=== PATIENT | female | born 1990 | race Caucasian/White ===

== ENCOUNTER 2017-12-02 11:19 | Emergency (ER) | payer OTHER ==
[~2017-12-02] VITALS: Ht 167.6 cm; Wt 74.8 kg
[2017-12-02 11:20] VITALS: BP 113/69
[2017-12-02 11:55] LABS: ABSOLUTE BASOPHIL COUNT 0.1 /CUMM (0.0-0.2); ABSOLUTE EOSINOPHIL COUNT 0 /CUMM (0.0-0.7); ABSOLUTE GRANULOCYTE CT 3.6 /CUMM (1.4-6.5); ABSOLUTE LYMPH COUNT 1.4 /CUMM (1.2-3.4); ABSOLUTE MONOCYTE COUNT 0.2 /CUMM (0.10-0.60); BASOPHIL % 2.6 % (0.0-2.0); EOSINOPHIL % 0.9 % (0-5); GRANULOCYTE % 67.5 % (42.2-75.2); HEMATOCRIT 35.4 % (37-47); MEAN CORPUSCULAR HGB 28.6 PG (27.0-31.0); MEAN CORPUSCULAR HGB CONC 34.3 G/DL (33.0-37.0); MEAN CORPUSCULAR VOLUME 83.3 FL (81.0-99.0); MEAN PLATELET VOLUME 7.7 FL (7.4-10.4); PLATELET COUNT 286 /CUMM (130-400); RED BLOOD CELL CT 4.25 /CUMM (4.20-5.40); WHITE BLOOD CELL COUNT 5.3 /CUMM (4.8-10.8)
[2017-12-02 12:05] LABS: PT 10.4 SEC (9.4-12.5); PTT 31 SEC (25-37)
[2017-12-02] MEDS ORDERED: FERROUS SULFAT325 M3 PO (12:14)
[2017-12-02] MEDS ORDERED: COLACE100 M1 PO (12:14)
[2017-12-02] MEDS ORDERED: METHADONE H5 MG/5 M2 PO (12:15)
[2017-12-02] MEDS ORDERED: NAC600 M1 PO (12:16)
[2017-12-02] MEDS ORDERED: DAILY VALUE1 EACH PO (12:17)
--- NOTE | 2017-12-02 12:47 | ED GI/GU/ABDOMINAL COMPLAINT ---
History of Present Illness General Chief Complaint: Abdominal Pain/Flank Pain Stated Complaint: BIBA ABD PAIN Source: patient Exam Limitations: no limitations Vital Signs & Intake/Output Vital Signs & Intake/Output ED Intake and Output 12/03 0000 12/02 1200 Intake Total Output Total Balance Patient 165 lb Weight Weight Reported by Patient Measurement Method Allergies Coded Allergies: No Known Allergies (12/02/17) Reconcile Medications Acetylcysteine (NAC) 600 MG CAPSULE 2 CAP PO BID UNKNOWN (Reported) Docusate Sodium (Colace) 100 MG CAPSULE 1 CAP PO DAILY STOOL SOFTENER ( Reported) Ferrous Sulfate 325 MG (65 MG IRON) TABLET 1 TAB PO DAILY IRON, VITAMIN ( Reported) Methadone HCl 5 MG/5 ML SOLUTION 90 MG PO DAILY MAINTENCE (Reported) Multivitamin (Daily Value) 1 EACH TABLET 1 TAB PO DAILY VITAMIN SUPPORT ( Reported) Triage Note: PRESENTS WITH EMS AFTER ONSET THIS MORNING OF DARK RED LOOSE STOOL X 4 EVENTS STARTING AT 0830. ALSO ASSOCIATED WITH 4 EPISODES OF EMESIS. ON ARRIVAL TO ED NO COMPLAINT OF N/V/D. NO SIMILAR EVENTS BEFORE. 4 MONTHS , CURRENTLY EXPEREINCING MENSES. Triage Nurses Notes Reviewed? yes LMP (ages 10-50): unknown ? N Is pt currently ? No Onset: Abrupt Duration: hour(s): (2), better, gone now Timing: single episode today Quality/Severity: cramping Severity Numbers: 5 Location: generalized abdomen Radiation: no radiation Activities at Onset: none Prior Abdominal Problems: none Past Sexual History: Unobtainable at this time No Modifying Factors: none Modifying Factors: Worsens With: palpation. HPI: 27-year-old female history of opioid dependence on methadone maintenance presents for evaluation of abdominal pain nausea vomiting and diarrhea. Patient states symptoms started suddenly 1-2 hours prior to arrival. The pain is located diffusely in her abdomen described as cramping. She notes that she had multiple episodes of watery diarrhea and did notice some bright red blood on the toilet paper. Denies any melena. No urinary symptoms vaginal discharge or vaginal bleeding. No dizziness or lightheadedness. ShE also notes that she has 4 episodes of vomiting. No hematemesis. No chest pain or shortness of breath. She reports that her symptoms have improved significantly since first starting. (Greyson Vegas) Past History Travel History Traveled to [place] past 21 day No Medical History Any Pertinent Medical History? 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 No (Greyson Vegas) Review of Systems Review of Systems Constitutional: Reports: no symptoms. EENTM: Reports: no symptoms. Respiratory: Reports: no symptoms. Cardiovascular: Reports: no symptoms. GI: Reports: see HPI, abdominal pain, diarrhea, nausea, bloody stool, vomiting. Genitourinary: Reports: no symptoms. Musculoskeletal: Reports: no symptoms. Skin: Reports: no symptoms. Neurological/Psychological: Reports: no symptoms. Hematologic/Endocrine: Reports: no symptoms. Immunologic/Allergic: Reports: no symptoms. All Other Systems: Reviewed and Negative (Greyson Vegas) Physical Exam Physical Exam General Appearance: well developed/nourished, no apparent distress, alert, awake Head: atraumatic, normal appearance Eyes: Bilateral: normal appearance, PERRL, EOMI. Ears, Nose, Throat, Mouth: hearing grossly normal, moist mucous membrane Neck: normal inspection, supple, full range of motion Respiratory: normal breath sounds, chest non-tender, no respiratory distress, lungs clear Cardiovascular: regular rate/rhythm, normal peripheral pulses Peripheral Pulses: 2+ radial (R), 2+ radial (L) Gastrointestinal: normal bowel sounds, soft, no organomegaly, tenderness ( DIFFUSE) Rectal: REFUSED Back: normal inspection, normal range of motion, no vertebral tenderness Extremities: normal range of motion Neurologic/Psych: no motor/sensory deficits, awake, alert, oriented x 3, normal gait, normal mood/affect Skin: intact, normal color, warm/dry Core Measures ACS in differential dx? No Sepsis Present: No Sepsis Focused Exam Completed? No (Greyson Vegas) Progress Differential Diagnosis: appendicitis, biliary colic, bowel obstruction, colon cancer, cholecystitis, diverticulitis, gastritis, inflamm bowel dis, intrauterine , kidney stone, ovarian cyst, ovarian torsion, pancreatitis, PID/cervicitis, peptic ulcer, PUD/GERD, SBO, UTI/pyelo Plan of Care: Orders Procedure Date/time Status CT ABD & PELVIS W IV CONTRAST 12/02 114 Active URINE 12/03 1127 Active URINALYSIS 12/03 1127 Active PARTIAL THROMBOPLASTIN TIME 12/02 112 Complete PROTHROMBIN TIME 12/02 112 Complete LIPASE 12/03 1127 Complete C-REACTIVE PROTEIN 12/03 1127 Complete COMPREHENSIVE METABOLIC PANEL 12/03 1127 Complete CBC WITHOUT DIFFERENTIAL 12/03 1127 Complete Laboratory Tests 12/02/17 1150: Anion Gap 7, Estimated GFR > 60, BUN/Creatinine Ratio 30.0 H, Glucose 96, Calcium 9.5, Total Bilirubin 0.5, AST 32, ALT 23, Alkaline Phosphatase 61, C- Reactive Prot, Quant < 0.5, Total Protein 7.7, Albumin 4.3, Globulin 3.4, Albumin/Globulin Ratio 1.3, Lipase 74, PT 10.4, INR 0.95, APTT 31, CBC w Diff NO MAN DIFF REQ, RBC 4.25, MCV 83.3, MCH 28.6, MCHC 34.3, RDW 14.0, MPV 7.7, Gran % 67.5, Lymphocytes % 25.6, Monocytes % 3.4, Eosinophils % 0.9, Basophils % 2.6 H , Absolute Granulocytes 3.6, Absolute Lymphocytes 1.4, Absolute Monocytes 0.2, Absolute Eosinophils 0, Absolute Basophils 0.1 Patient is here for evaluation of acute onset of abdominal pain nausea vomiting and diarrhea. She reports that since her symptoms first started to have improved. She denies any chest pain or shortness of breath. She does note some blood in her diarrhea no recent antibiotics recent travel or sick contacts. Labs CT scan ordered. PT abruptly reports that she needs to leave. 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 She does not want to stay for the evaluation. She understands the risks. She is feeling better and will follow- up with her doctor. She is alert and oriented 3. AGAINST MEDICAL ADVICE form was signed. Patient was instructed to follow-up with her doctor or return to the emergency department with any concerns. Initial ED EKG: none (Greyson Vegas) Departure Departure Disposition: LEFT AGAINST MEDICAL ADVICE Condition: Stable Clinical Impression Primary Impression: Abdominal pain Qualifiers: Abdominal location: generalized Qualified Code: R10.84 - Generalized abdominal pain Referrals: Unknown (PCP/Family) Additional Instructions: You are leaving AGAINST MEDICAL ADVICE. Premature discharge could result in negative health effects including permanent disability or . Return to the emergency department anytime with any concerns to complete your evaluation. YOU should follow-up with your primary care doctor as soon as possible. Departure Forms: Customer Survey General Discharge Information (Greyson Vegas) PA/FILM ARCHIVIST Co-Sign Statement Statement: ED Attending supervision documentation- [] I saw and evaluated the patient. I have also reviewed all the pertinent lab results and diagnostic results. I agree with the findings and the plan of care as documented in the PA's/FILM ARCHIVIST's documentation. [X] I have reviewed the ED Record and agree with the PA's/FILM ARCHIVIST's documentation. [] Additions or exceptions (if any) to the PAs/FILM ARCHIVIST's note and plan are summarized below: [] (Gurwinder ONTIVEROS,Shai Bliss)
== END 2017-12-02 13:15 | disposition left against medical advice (07) ==
LOC: ERH 11:19
PROVIDERS: Physician Assistant Medical
DX: R10.84 Generalized abdominal pain (principal)
CPT/HCPCS: 81001; 81025; J3101

== ENCOUNTER 2017-12-08 19:54 | Emergency (ER) | payer OTHER ==
[~2017-12-08] VITALS: Ht 165.1 cm; Wt 71.7 kg
[~2017-12-08 19:54] MED LIST: COLACE100 M1 PO; DAILY VALUE1 EACH PO; FERROUS SULFAT325 M3 PO; METHADONE H5 MG/5 M2 PO; NAC600 M1 PO
[2017-12-08 20:09] VITALS: BP 112/75
--- NOTE | 2017-12-08 21:10 | RADIOLOGY REPORT ---
EXAMINATION: XR ANKLE, RIGHT CLINICAL INFORMATION: Fall. COMPARISON: None TECHNIQUE: AP, lateral, and mortise views of the right ankle. FINDINGS: The bones and soft tissues are normal. No fracture. Alignment is anatomic. Joint spaces are maintained. No joint effusion. IMPRESSION: Normal right ankle.
[2017-12-08] MEDS ORDERED: IBUPROFEN800 M1 PO (22:04)
--- NOTE | 2017-12-08 22:05 | ED ANKLE/FOOT INJURY COMPLAINT ---
History of Present Illness General Chief Complaint: Foot or Ankle Injury Stated Complaint: ANKLE PAIN Source: patient Exam Limitations: no limitations Vital Signs & Intake/Output Vital Signs & Intake/Output Vital Signs Date Time Temp Pulse Resp B/P B/P Pulse O2 O2 Flow FiO2 Mean Ox Delivery Rate 12/08 2008 97.0 99 16 112/75 97 Room Air Allergies Coded Allergies: No Known Allergies (12/02/17) Reconcile Medications Acetylcysteine (NAC) 600 MG CAPSULE 2 CAP PO BID UNKNOWN (Reported) Docusate Sodium (Colace) 100 MG CAPSULE 1 CAP PO DAILY STOOL SOFTENER ( Reported) Ferrous Sulfate 325 MG (65 MG IRON) TABLET 1 TAB PO DAILY IRON, VITAMIN ( Reported) Ibuprofen 800 MG TABLET 1 TAB PO TID PAIN Methadone HCl 5 MG/5 ML SOLUTION 90 MG PO DAILY MAINTENCE (Reported) Multivitamin (Daily Value) 1 EACH TABLET 1 TAB PO DAILY VITAMIN SUPPORT ( Reported) Triage Note: PT TO ED FOR R ANKLE PAIN. SLIPPED AND FELL WHILE AT [facility] AT 1500. TOOK 800MG MOTRIN AT 1600. MEDICATED WITH 650MG TYLENOL IN TRIAGE. PT IS IN RECOVERY FOR OPIATES. DOES NOT WANT ANY PAIN MEDS. Triage Nurses Notes Reviewed? yes Duration: hour(s):, constant Timing: single episode today Severity: moderate, severe Pain/Injury Location: Right: Ankle. No Modifying Factors: none : No Patient currently breastfeeds: No HPI: 19-year-old female comes into the emergency room for further evaluation of right ankle pain. Patient reports she was at [facility] earlier today when she twisted her right ankle and rolled inward. She's been having some swelling and pain since then. Denies any fever chills. Comes in for further evaluation. (Orlin Meraz) Past History Travel History Traveled to [place] past 21 day No Medical History Any Pertinent Medical History? 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 No (Orlin Meraz) Review of Systems Review of Systems Constitutional: Reports: no symptoms. EENTM: Reports: no symptoms. Respiratory: Reports: no symptoms. Cardiovascular: Reports: no symptoms. GI: Reports: no symptoms. Genitourinary: Reports: no symptoms. Musculoskeletal: Reports: see HPI. Skin: Reports: no symptoms. Neurological/Psychological: Reports: no symptoms. Hematologic/Endocrine: Reports: no symptoms. Immunologic/Allergic: Reports: no symptoms. All Other Systems: Reviewed and Negative (Orlin Meraz) Physical Exam Physical Exam General Appearance: well developed/nourished, mild distress Head: atraumatic Eyes: Bilateral: normal appearance. Ears, Nose, Throat: normal ENT inspection, hearing grossly normal Neck: normal inspection Cardiovascular/Respiratory: no respiratory distress Back: normal inspection Leg/Knee/Thigh Left: not examined Ankle Right: soft tissue tenderness, swelling, tenderness, limited range of motion Neuro/Vascular: normal motor function, normal sensation Tendon: normal tendon function Psychiatric: awake, alert, oriented x 3 Skin: intact, normal color, warm/dry (Orlin Meraz) Progress Differential Diagnosis: fracture, dislocation, sprain, contusion Plan of Care: Orders Procedure Date/time Status Durable Medical Equipment 12/08 2205 Active Diagnostic Imaging: Viewed by Me: Radiology Read. Discussed w/RAD: Radiology Read. Radiology Impression: PATIENT: GABBI NAVARRETE PRESENT AGE: 27 PATIENT ACCOUNT NO: [id number] : 89 LOCATION: [facility] ORDERING PHYSICIAN: Gilmar Field DO (TBS) SERVICE DATE: 12/08/17 EXAM TYPE: RAD - XRY-ANKLE 3 OR MORE VIEWS R EXAMINATION: XR ANKLE, RIGHT CLINICAL INFORMATION: Fall. COMPARISON: None TECHNIQUE: AP, lateral, and mortise views of the right ankle. FINDINGS: The bones and soft tissues are normal. No fracture. Alignment is anatomic. Joint spaces are maintained. No joint effusion. IMPRESSION: Normal right ankle. DICTATED BY: Tank Valladares MD DATE/TIME DICTATED: 12/08/172049 HYDRO PNEUMATIC TESTER:DARWIN DATE/TIME TRANSCRIBED:12/08/172049 CONFIDENTIAL, DO NOT COPY WITHOUT APPROPRIATE AUTHORIZATION. <Electronically signed in Other Vendor System> SIGNED BY: Tank Valladares MD 12/08/172109 (Orlin Meraz) Departure Departure Disposition: HOME OR SELF CARE Condition: Stable Clinical Impression Primary Impression: Right ankle sprain Referrals: Dulce ONTIVEROS,Toña Unknown (PCP/Family) Additional Instructions: Ice. Rest. Motrin for pain. Elevation. Follow-up with orthopedic doctor provided if not better in 3-5 days. If symptoms do not improve you'll require further evaluation with possible repeat x-rays as well as evaluation by home health specialist. Sprains can last anywhere from days to weeks. No high impact running or jumping if you have an ankle sprain or any type of lower extremity sprain. Return to normal activity only after symptoms have resolved. Please go over all results of today's visit with your primary care doctor. Contact your primary care doctor to let them know you were here in the emergency room. There may be nonspecific findings which may not be related to your visit today here in the emergency room but may require further evaluation and chronic monitoring by your primary care doctor. If you had a laceration today the chance of foreign body always remains. You should follow-up with your primary care doctor for recheck in 3-5 days for a wound check. If you had an x-ray done there is a chance that a fracture could have been missed on initial read and you should follow-up with your primary care doctor for repeat x-rays if symptoms persist. If your blood pressure was elevated here in the emergency room please have rechecked by [facility] primary care doctor within the next 48. If you were prescribed a narcotic here in the emergency room or any type of controlled substances you're not allowed to drive while taking this medication or operate any type of heavy machinery. Narcotics can make you feel lightheaded dizziness nausea and can cause constipation. You may need to picker a stool softener. Thank you for choosing [facility] emergency room. Please return to the emergency room immediately if you have any other concerns worsening of symptoms. Departure Forms: Customer Survey General Discharge Information Prescriptions: Current Visit Scripts Ibuprofen 1 TAB PO TID #60 TAB (Orlin Meraz) PA/PULPWOOD BUYER Co-Sign Statement Statement: ED Attending supervision documentation- I saw and evaluated the patient. I have also reviewed all the pertinent lab results and diagnostic results. I agree with the findings and the plan of care as documented in the PA's/PULPWOOD BUYER's documentation. x I have reviewed the ED Record and agree with the PA's/PULPWOOD BUYER's documentation. [] Additions or exceptions (if any) to the PAs/PULPWOOD BUYER's note and plan are summarized below: [] (Dax ONTIVEROS,Vidal) Procedures Splinting Location: right ankle Manual Alignment Performed: No Splint: ankle stirrups Splint Applied By: splint applied by me Pre-Proc Neuro Vasc Exam: normal Post-Proc Neuro Vasc Exam: normal (Orlin Meraz)
== END 2017-12-08 22:16 ==
LOC: ERH 19:54
DX: S93.401A Sprain of unspecified ligament of right ankle, initial encounter (principal); X58.XXXA Exposure to other specified factors, initial encounter; Y92.512 Supermarket, store or market as the place of occurrence of the external cause; Y93.9 Activity, unspecified
CPT/HCPCS: 73610-RT